=== PATIENT | male | born 1965 | race Caucasian/White ===

== ENCOUNTER 2020-06-14 15:37 | Emergency (ER) | payer BC ==
[2020-06-14 15:47] VITALS: BP 193/104; PULSE 99; O2SAT 99
--- NOTE | 2020-06-14 15:55 | ERPHSYRPT ---
- History of Present Illness Time Seen by Provider: 06/14/20 15:48 Source: patient Exam Limitations: no limitations Patient Subjective Stated Complaint: Finger injury Triage Nursing Assessment: Patient ambulated back to ED and transferred self to bed. Patient A+O X3. Patient's skin pink, warm and dry. Patient states he smashes his finger in his sleep last night causing his left hand, ring finger to swell. Patient unable to get wedding ring off of finger due to swelling. Patient denies pain or discomfort. Physician History: 55 years old male presented in the ER with chief complaint of inability to take off his ring from left fourth digit because of swelling around. Patient report he accidentally smashed his finger in the sleep last night and started to have some swelling around/distal to ring and is unable to take it off. Report gradual increase in the swelling and was worried about he would be unable to remove with if it gets worse. No discoloration of finger distal to ring. Intact range of motion at all joints. Minimal dull aching pain. Allergies/Adverse Reactions: No Known Drug Allergies Allergy (Verified 06/14/20 15:41) Hx Tetanus, Diphtheria Vaccination/Date Given: Yes Hx Influenza Vaccination/Date Given: No Hx Pneumococcal Vaccination/Date Given: No Immunizations Up to Date: Yes Travel Risk - International Travel Have you traveled outside of the country in past 3 weeks: No - Coronavirus Screening Are you exhibiting any of the following symptoms?: No Close contact with a COVID-19 positive Pt in past 14-21 Days: No - Review of Systems Constitutional: No Symptoms Eyes: No Symptoms Ears, Nose, & Throat: No Symptoms Respiratory: No Symptoms Cardiac: No Symptoms Abdominal/Gastrointestinal: No Symptoms Skin: No Symptoms - Past Medical History Pertinent Past Medical History: Yes Endocrine Medical History: Diabetes Type II - Past Surgical History Past Surgical History: No - Social History Smoking Status: Never smoker Exposure to second hand smoke: No Drug Use: none Patient Lives Alone: No - Nursing Vital Signs Nursing Vital Signs: Initial Vital Signs Temperature 97.3 F 06/14/20 15:42 Pulse Rate 99 H 06/14/20 15:42 Respiratory Rate 19 06/14/20 15:42 Blood Pressure 193/104 06/14/20 15:42 O2 Sat by Pulse Oximetry 99 06/14/20 15:42 Pain Scale Pain Intensity 0 - Physical Exam General Appearance: no apparent distress Ears, Nose, Throat Exam: pharynx normal Neck Exam: normal inspection, full range of motion Respiratory Exam: normal breath sounds, lungs clear Cardiovascular Exam: regular rate/rhythm, normal heart sounds Extremity Exam: other (Swollen left fourth digit distal to ring placement in the proximal phalanx. Intact range of motion. Intact distal neurovascular.) Neurologic Exam: alert, oriented x 3, cooperative Skin Exam: normal color SpO2 Interpretation: normal SpO2: 99 - Progress Progress: improved Progress Note: 06/14/20 16:00 Procedure. After informed consent ring is cut and removed. No difficulty movements at proximal and distal interphalangeal joints. Intact distal neurovascular. No bony tenderness. Do not think patient needs imaging. Stable for discharge. Recommended taking Tylenol ibuprofen as needed. - Departure Departure Disposition: Home Clinical Impression: Finger pain, left Condition: Stable Critical Care Time: No Referrals: DOCTOR,NO FAMILY [Primary Care Provider] - JOSE MARTIN LAGUNA MD [ACTIVE STAFF] - Additional Instructions: Tylenol/ibuprofen as needed. Return to ER for increasing swelling/pain in the ring finger
== END 2020-06-14 15:56 | disposition home or self-care (01) ==
LOC: ED 15:37
DX: M79.645 Pain in left finger(s) (principal)
CPT/HCPCS: 99283

== ENCOUNTER 2022-03-28 22:01 | Emergency (ER) | payer BC ==
--- NOTE | 2022-03-28 22:12 | ERPHSYRPT ---
- History of Present Illness Time Seen by Provider: 03/28/22 22:11 Source: patient Exam Limitations: no limitations Physician History: This is a 56-year-old obese diabetic male who presents with unknown cause of right index finger swelling and redness and warmth. He noticed the area more red swollen and tender just to couple hours prior to arrival to emergency department. He has not had a fever. Timing/Duration: day(s) (2), worse Quality: painful Severity: mild Location: hands (Right hand index finger) Possible Causes: no cause identified Associated Symptoms: denies symptoms Allergies/Adverse Reactions: No Known Drug Allergies Allergy (Verified 03/28/22 22:15) Hx Tetanus, Diphtheria Vaccination/Date Given: Yes Hx Influenza Vaccination/Date Given: No Hx Pneumococcal Vaccination/Date Given: No Travel Risk - International Travel Have you traveled outside of the country in past 3 weeks: No - Coronavirus Screening Are you exhibiting any of the following symptoms?: No Close contact with a COVID-19 positive Pt in past 14-21 Days: No - Review of Systems Constitutional: No Symptoms Eyes: No Symptoms Ears, Nose, & Throat: No Symptoms Respiratory: No Symptoms Cardiac: No Symptoms Abdominal/Gastrointestinal: No Symptoms Genitourinary Symptoms: No Symptoms Musculoskeletal: No Symptoms Skin: Cellulitis (Right index finger dorsal aspect) Neurological: No Symptoms Psychological: No Symptoms Endocrine: No Symptoms Hematologic/Lymphatic: No Symptoms Immunological/Allergic: No Symptoms All Other Systems: Reviewed and Negative - Past Medical History Pertinent Past Medical History: Yes Endocrine Medical History: Diabetes Type II - Past Surgical History Past Surgical History: No - Social History Smoking Status: Never smoker Exposure to second hand smoke: No Drug Use: none Patient Lives Alone: No - Nursing Vital Signs Nursing Vital Signs: Initial Vital Signs Temperature 96.9 F 03/28/22 22:02 Pulse Rate 90 03/28/22 22:02 Respiratory Rate 18 03/28/22 22:02 Blood Pressure 185/82 03/28/22 22:02 O2 Sat by Pulse Oximetry 95 03/28/22 22:02 Pain Scale Pain Intensity 0 - Physical Exam General Appearance: no apparent distress, alert, obese Eye Exam: PERRL/EOMI, eyes nml inspection Ears, Nose, Throat Exam: normal ENT inspection, moist mucous membranes Neck Exam: normal inspection, non-tender, supple, full range of motion Respiratory Exam: airway intact, No chest tenderness, No respiratory distress Cardiovascular Exam: regular rate/rhythm, normal heart sounds, normal peripheral pulses Gastrointestinal/Abdomen Exam: No tenderness Rectal Exam: not done Back Exam: normal inspection, normal range of motion, No CVA tenderness, No vertebral tenderness Extremity Exam: normal range of motion, pelvis stable, inflammation (Dorsal aspect right index finger), swelling (Dorsal aspect right index finger ), tenderness (Dorsal aspect right index finger) Neurologic Exam: alert, oriented x 3, cooperative, 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, normal mood/affect, nml cerebellar function, nml station & gait, sensation nml Skin Exam: other (Cellulitis right index finger) Lymphatic Exam: No adenopathy SpO2 Interpretation: normal SpO2: 95 Ordered Tests: Medication Summary Discontinued Medications Generic Name Dose Route Start Last Admin Trade Name Freq PRN Reason Stop Dose Admin Ceftriaxone Sodium 1,000 mg 03/28/22 22:17 Ceftriaxone Sodium 1000 Mg Inj Vial IM 03/28/22 22:18 STAT ONE Prednisone 20 mg 03/28/22 22:18 Prednisone 20 Mg Tablet PO 03/28/22 22:19 STAT ONE - Progress Progress: unchanged Counseled pt/family regarding: diagnosis, need for follow-up - Departure Departure Disposition: Home Clinical Impression: Cellulitis of right index finger Condition: Stable Critical Care Time: No Referrals: [facility] [Primary Care Provider] - Follow up/PCP as directed Additional Instructions: Keep site clean daily with soap and water. Take your antibiotics as prescribed. Return to the emergency department symptoms worsen. Follow-up with primary prescribing provider if symptoms persist but are not worsening. Prescriptions: Smz/Tmp Ds Tablet [Bactrim Ds Tablet] 1 udtab PO BID #14 tablet
[2022-03-28] MEDS ORDERED: Rocephin 1000 MG INJ IM ONE (22:17)
[2022-03-28] MEDS ORDERED: DELTASONE 20 MG PO ONE (22:18)
[2022-03-28] MEDS ORDERED: Rocephin 1000 MG INJ ONE (22:23)
[2022-03-28] MEDS ORDERED: DELTASONE 20 MG ONE (22:23)
[2022-03-28 22:48] VITALS: BP 150/73; PULSE 81; O2SAT 94
== END 2022-03-28 22:44 | disposition home or self-care (01) ==
LOC: ED 22:01
DX: L03.011 Cellulitis of right finger (principal); E11.9 Type 2 diabetes mellitus without complications
CPT/HCPCS: 96372; 99283; J0696; A9270-GY